=== PATIENT | female | born 1980 | race Caucasian/White ===

== ENCOUNTER 2019-12-04 18:33 | Emergency (ER) | payer BC, MEDICARE ==
[~2019-12-04] VITALS: Ht 172.7 cm; Wt 124.0 kg
[2019-12-04] MEDS ORDERED: ONDANSETRON PF 4 MG/2 ML VIAL. IVP ONE (19:00)
[2019-12-04] MEDS ORDERED: MORPHINE SULFATE 10 MG/ML VIAL. IV ONE (19:00)
--- NOTE | 2019-12-04 19:09 | PHYS DOC ---
General Adult EDM: Chief Complaint: LOWEREXTREMITY INJURY HPI: HPI: Patient is a 39-year-old female who presents emergency room after falling off of a stepladder. Patient was painting when this happened. She states that she fell and then took a step back landing on her left side. She denies hitting her head or losing consciousness. She is having pain in her right hip, right medial knee, right ankle, right tib-fib. She is requesting Zofran for nausea. She denies any other injuries. She does not have any open wounds. She states that she is able to move her toes but that it she said sharp shooting pains up her leg. Review of Systems: Review of Systems: General: Denies fever, chills, sweats, fatigue Eyes: Denies drainage, blurred vision, eye redness HENT: Denies rhinorrhea, sore throat, earache Respiratory: Denies cough, shortness of breath, wheezing Cardiac: Denies edema, palpitations, chest pain GI: Denies abdominal pain, Nausea, vomiting MSK: Denies back pain, neck pain Skin: Denies rash, jaundice Neuro: Denies headache, dizziness Psychiatric: Denies SI/HI Heart Score: Risk Factors: Risk Factors: DM, Current or recent (<one month) smoker, HTN, HLP, family history of CAD, obesity. Risk Scores: Score 0 - 3: 2.5% MACE over next 6 weeks - Discharge Home Score 4 - 6: 20.3% MACE over next 6 weeks - Admit for Clinical Observation Score 7 - 10: 72.7% MACE over next 6 weeks - Early Invasive Strategies Current Medications: Current Medications Medications (Trade) Dose Ordered Sig/Dayna Start Time Stop Time Status Last Admin Dose Admin Morphine Sulfate (Morphine Sulfate) 5 mg 1X ONCE 12/04/19 19:00 12/04/19 19:01 UNV Ondansetron HCl (Zofran) 4 mg 1X ONCE 12/04/19 19:00 12/04/19 19:01 UNV Physical Exam: PE: General: Awake, alert, NAD. Well Nourished, well hydrated. Cooperative HEENT: Atraumatic, EOMI, PERRL, airway patent, moist oral mucosa Neck: Supple, trachea midline Respiratory: CTA bilaterally, normal effort, no wheezing/crackles CV: RRR, no murmur, cap refill <2 GI: Soft, nondistended, nontender, no masses MSK: No obvious deformities. Right lower extremity: Tenderness in right ankle, right knee, mid lower leg, right hip. 2+ pulses bilateral DP Skin: Warm, dry, intact Neuro: A&O x3, speech NL, sensory and motor grossly intact, no focal deficits Psych: Normal affect, normal mood, not suicidal or homicidal EKG: EKG: [] Radiology/Procedures: Radiology/Procedures: [] Course & Med Decision Making: Course & Med Decision Making Pertinent Labs and Imaging studies reviewed. (See chart for details) Patient is a 39-year-old female who presents to the emergency room after a fall. She is complaining of pain in multiple places in her right leg. X-rays were ordered as appropriate. Patient has a tibial plateau and fibular neck fracture. I have discussed this with Dr. Castaneda the on-call orthopedic surgeon. He states it appears that the plateau fracture is not displaced and likely will not need surgery. He recommends a knee immobilizer and no weight on the fracture. I discussed this with the patient. Patient would like to go home and follow-up with her own orthopedic surgeon in [place]. Patient's test results and vitals while in the ED were fully reviewed and discussed with the patient. Patient is stable and at this time does not need admission to the hospital. We have discussed strict return precautions and the importance of following up with their Primary Care Physician. Patient stated understanding and was given an opportunity to ask any questions. Patient is in agreement with plan. Jennifer Disclaimer: Jennifer Disclaimer: This electronic medical record was generated, in whole or in part, using a voice recognition dictation system. Departure Departure Impression: Primary Impression: Fall Additional Impressions: Tibial plateau fracture, right Fibula fracture Disposition: HOME, SELF-CARE Condition: STABLE Patient Instructions: Tibial Plateau Fracture, Undisplaced, Adult, Tibial and Fibular Fracture, Adult Scripts Ondansetron Hcl (ZOFRAN) 4 Mg Tablet 1 TAB PO PRN Q6-8HRS for nausea, #12 TAB Prov: JAVY DORSEY MD 12/05/19 Oxycodone/Apap 5-325 (PERCOCET 5-325 MG TABLET ) 1 Each Tablet 1 TAB PO PRN Q6HRS PRN for PAIN, #15 TAB 0 Refills Prov: JAVY DORSEY MD 12/04/19 Justicifation of Admission Dx: Justifications for Admission: Justification of Admission Dx: N/A JAVY DORSEY MD Dec 04, 2019 19:09
--- NOTE | 2019-12-04 20:28 | RAD ---
EXAM: 1. Frontal pelvis with two-view right hip. 2. Right femur 2 views. 3. Right knee 3 views. 4. Right tibia/fibula 2 views. 5. Right ankle 2 views. HISTORY: Fall, pain. COMPARISON: None. FINDINGS: No fractures are appreciated within the pelvis or either proximal femur. The joint spaces and alignment of both hips are maintained. An intrauterine device is noted. No fractures are appreciated more distally in the right femur. There is a mildly depressed fracture of the lateral margin of the lateral tibial plateau. Articular surface gap measures only 1 mm. Depression measures 3 mm. Another nondisplaced fracture is noted along the right fibular neck. The joint spaces of the knee are maintained. The lateral view is rotated, but no clear joint effusion is appreciated. No fractures are appreciated more distally within the tibia and fibula. No fractures are appreciated about the ankle. The joint spaces and alignment of the mortise appear maintained. IMPRESSION: 1. Mildly depressed fracture along the lateral aspect of the lateral tibial plateau. 2. Nondisplaced fracture of the fibular neck. Electronically signed by: Lucio Marin MD (12/04/2019 8:25 PM) [facility]
[2019-12-04] MEDS ORDERED: oxyCODONE/APAP 5/325 1 TAB TABLET PO ONE (22:00)
[2019-12-04] MEDS ORDERED: OXYC1TAB15 PO (23:20)
[2019-12-05] VITALS: BP 131/63
[2019-12-05] MEDS ORDERED: ONDA4TAB7 PO (02:24)
== END 2019-12-05 00:22 | disposition home or self-care (01) ==
LOC: ER 18:33
DX: S82.144A Nondisplaced bicondylar fracture of right tibia, initial encounter for closed fracture (principal); S82.401A Unspecified fracture of shaft of right fibula, initial encounter for closed fracture; M25.561 Pain in right knee; M25.551 Pain in right hip; M25.571 Pain in right ankle and joints of right foot; W11.XXXA Fall on and from ladder, initial encounter; Y93.89 Activity, other specified; Y92.89 Other specified places as the place of occurrence of the external cause; Y99.8 Other external cause status
CPT/HCPCS: 29505; 73502; 73552; 73562; 73590; 73600; 96374; 96375; 99285; J2270; J2405